=== PATIENT | male | born 1945 | race Caucasian/White ===

== ENCOUNTER 2021-10-22 06:03 | Day surgery (SDC) | payer OTHER, SELFPAY ==
[2021-10-21] MEDS: LACTATED RINGERS 1000 ML 1,000 ML 100 ML IV (12:30)
[2021-10-22] VITALS (26 sets, daily range): BP systolic 99–136; BP diastolic 47–94; PULSE 52–77; RESP 16; TEMP 35.8–36.2; O2SAT 87–99; BMI 25.4
[2021-10-22] MEDS: CEFAZOLIN 2 GM INJ IVP (06:11)
[2021-10-22] MEDS: CELECOXIB 200 MG CAPSULE PO (06:32)
[2021-10-22] MEDS: ACETAMINOPHEN 500 MG TABLET 1000 MG PO (06:32)
[2021-10-22] MEDS: OXYCODONE (CR) 10 MG TAB.ER.12H PO (06:32)
[2021-10-22] MEDS: SODIUM CHLORIDE 0.9 % (FLUSH) 10 ML SYRINGE IVF (06:51)
--- NOTE | 2021-10-22 07:08 | SUR.PREOP ---
TIME?OUT:?0708 PT/FILIPE RN/Ca GOODMAN MDA?VERIFICATION?OF?SURGICAL?SITE,?PROCEDURE,?AND?CONSENT OBTAINED?PRIOR?TO?INVASIVE?PROCEDURE.
[2021-10-22] MEDS: fentaNYL 100 MCG/2 ML inj IVP (07:10)
[2021-10-22] MEDS: MIDAZOLAM HCL 1 MG/ML inj IVP (07:10)
--- NOTE | 2021-10-22 07:12 | W.PM.NB ---
Nerve Block Nerve Block Time Seen by Provider: 07:12 Date Seen: 10/22/21 Type of block requested by surgeon for post-operative analgesia: interscalene Side: right Time out performed: Yes Verification of patient name: Yes Verification of date of : Yes Site marking: site marked Name of person performing procedure: Pradip Continuous monitoring Was continuous monitoring of O2 sat, B/P, radiation monitor, recorded every 15 minutes?: Yes Procedure Checklist: sterile prep, needles and gloves Ultrasound guided. Images saved: Yes Medications given in 5ml increments after negative aspiration: Ropivicaine %: 0.5 mL: 20 Needle gauge: 22 Decadron (mg): 10 Precedex (mcg): 25 Patient tolerated procedure well: Yes
--- NOTE | 2021-10-22 08:34 | SUR.OPER ---
PATIENT QUESTIONS ANSWERED SATISFACTORILY PREOPERATIVELY. PATIENT BROUGHT TO OR #2 PER CART FOLLOWING THE BLOCK. Patient positioned supine on OR #2 bed for the intubation.? Perioperative team wrapped the right arm in a neutral position on the pt. abdomen with the drawsheet. Left arm elevated on an IV pole in a padded strap. Final approval of positioning by surgeon. CONTINUOUS IRRIGATION OF THE LEFT SHOULDER WITH MIXTURE OF 3000 NACL AND 1mg OF EPINEPHRINE DURING PROCEDURE.
[2021-10-22] MEDS: LACTATED RINGERS 1000 ML 1,000 ML 125 ML IV (09:16)
--- NOTE | 2021-10-22 09:17 | P.ORPRC_ITS ---
Procedure Note Date of procedure: 10/22/21 Procedure: SURGEON: Venkatesh Negron MD STRUCTURAL DESIGNER: Demi Sexton PA-C PREOPERATIVE DIAGNOSIS: Left shoulder rotator cuff tear, AC joint arthrosis POSTOPERATIVE DIAGNOSIS: Left shoulder rotator cuff tear, AC joint arthrosis NAME OF OPERATION: Left shoulder arthroscopic subacromial decompression, distal clavicle excision, mini open rotator cuff repair ANESTHESIA: Supraclavicular block plus general endotracheal ESTIMATED BLOOD LOSS: 5 mL COMPLICATIONS: None SPECIMENS: None DRAINS: None PREOPERATIVE ANTIBIOTICS: Ancef 2 grams INDICATIONS: The patient is a 76-year-old male with a history of left shoulder pain secondary to the above diagnoses. Despite appropriate non operative management, they continue to have symptoms. Operative intervention was recommended. The risks, benefits and expected outcomes were discussed in detail. These incl uded but were not limited to: Infection, bleeding, injury to blood vessel or nerve, venous thromboembolism. All questions were answered to their satisfaction. PROCEDURE: A supraclavicular block was placed by Anesthesia. General anesthesia was administered. The patient was placed in the high beach chair position. The left shoulder was prepped and draped in the usual sterile fashion. The glenohumeral joint was infiltrated with 20 mL of normal saline with epinephrine. The posterior portal was established, the arthroscope was introduced. The anterior portal was established, Diagnostic arthroscopy was performed with findings as follows: The biceps is torn and retracted out of the glenohumeral joint. There is degenerative, age-appropriate tearing of the labrum circumferentially. Articular surfaces on the humeral head and glenoid are normal. There are no loose bodies. There is a full-thickness tear of the supraspinatus. The labrum was debrided with the shaver. The arthroscope was placed in the subacromial space, the lateral portal was established. The Arthrex [place] was used to dissect the acromion free. The CA ligament was recessed off the anterior acromion, the AC joint was exposed. The acromioplasty was performed with the bur in the posterior portal. The bur was then placed in the lateral portal and the lateral and anterior aspect of the acromion were resected. The undersurface of the distal clavicle was resected through the lateral portal. Finally, the bur was placed in the anterior portal and the remainder of the distal clavicle was resected for a total of 10 mm. An accessory anterolateral portal was placed. The subacromial/subdeltoid bursa was aggressively debrided. There is a full-thickness tear of the supraspinatus, infraspinatus and subscap. Arthroscopic instruments were removed. The accessory anterolateral portal was extended proximally and distally, subcutaneous dissection was taken with electrocautery to the deltoid. The deltoid was divided in line with its fibers. The static retractor was placed. The subacromial/subdeltoid bursa was debrided with the Gomez scissors. The greater and lesser tuberosities were debrided to punctate bleeding bone using the arthroscopic bur. Two Arthrex BioComposite SwiveLock anchors were placed just off the articular surface. Both limbs of the FiberWire and fiber tape were passed using the scTipTap ion. A fiber link was placed in the leading edge of the rotator cuff x2. An inverted mattress suture with FiberTape was placed in the subscap, a FiberLink was placed in the leading edge of the subscap. The subscap was secured to lesser tuberosity with a SwiveLock anchor. We tied the 2 central FiberWire sutures over the rotator cuff. We then proceeded with a lateral row of SwiveLock anchors x 2 crossing the FiberTape and incorporating the FiberWire and fiber link into each lateral row anchor. This provides an excellent repair of the rotator cuff. There is no tension on the repair with the shoulder at 0? abduction. The wound was irrigated with normal saline off the pump. The deltoid was repaired with an 0 Vicryl in an interrupted [id number] fashion. Subcutaneous tissues were closed with a 3-0 Vicryl. Skin was closed with a 3-0 Monocryl in a subcuticular fashion. A dry dressing, polar care and sling were applied. Sponge and needle counts were correct x2. The patient tolerated the procedure well. There were no apparent complications. They were carefully transferred to the hospital bed and taken to the postanesthesia care unit in satisfactory condition. PLAN: The patient will be discharged to home. No active range of motion of the shoulder will be allowed for 6 weeks postoperatively. They can work on active range of motion of the elbow, wrist and fingers. They will follow up in the office next week for a wound check and an AP and transscapular Y-view of the shoulder prior to being seen, in preparation for beginning therapy.
--- NOTE | 2021-10-22 09:32 | W.ANESCHARGE ---
Anesthesia Charges Start Date/Time Anesthesia Start Date: 10/22/21 Anesthesia Start Time: 07:29 Stop Date/Time Anesthesia Stop Date: 10/22/21 Anesthesia Stop Time: 09:34 Summary Emergency: No Extremes of Age: Over 68-CPT 80234
--- NOTE | 2021-10-22 09:51 | W.ANESCHARGE ---
Anesthesia Charges Start Date/Time Anesthesia Start Date: 10/22/21 Anesthesia Start Time: 07:29 Stop Date/Time Anesthesia Stop Date: 10/22/21 Anesthesia Stop Time: 09:34 Summary Emergency: No Extremes of Age: Over 68-CPT 80374
== END 2021-10-22 11:53 | disposition home or self-care (01) ==
PROVIDERS: Visit Provider Orthopaedic Surgery
PROC: (CPT 23412; principal; 2021-10-22 07:30)
DX: M75.102 Unspecified rotator cuff tear or rupture of left shoulder, not specified as traumatic (principal); M19.012 Primary osteoarthritis, left shoulder
CPT/HCPCS: 29826; 29824; 23412; 01630; 64415; 76942; 99100; A9270; C1713; J0330; J0690; J1100; J2250; J2370; J2405; J2704; J2710; J3010; J7120; L3670

== ENCOUNTER 2022-07-12 12:45 | Outpatient (CLI) | payer OTHER, SELFPAY ==
--- NOTE | 2022-07-12 13:00 | CRLHL7_ITS ---
For Patients: As a result of the 21st Century Cures Act, medical imaging exams and procedure reports are released immediately into your electronic medical record. You may view this report before your referring provider. If you have questions, please contact your health care provider. Indication: Right L5-S1 radiculopathy Technique: Multiplanar, multisequence, MRI of the lumbar spine, obtained without contrast. Comparison: Lumbar spine 30835 spine 03/29/2014 Findings: Lumbar dextrocurvature, with preserved lordosis. Degenerative grade 1 retrolisthesis at L2-3. Multilevel degenerative endplate marrow signal changes, including predominantly Modic type 1 at the L1-2 level, mixed Modic type 1 and Modic type 2 changes at L2-3 and L4-5, and predominantly Modic type 2 at the remaining levels. No evidence of acute osseous abnormality or suspicious marrow lesion. The conus medullaris terminates at approximately T12-L1. No suspicious findings in the paraspinal soft tissues. Bilateral renal cysts. Unremarkable included SI joints. T11-12, T12-L1: Mild diffuse disc bulge, facet arthropathy. No significant neural foraminal or spinal canal stenosis. L1-L2: Diffuse disc bulge, mild facet arthropathy. No significant neural foraminal stenosis. Left lateral recess narrowing without significant central spinal canal stenosis. L2-L3: Retrolisthesis, disc-endplate complex, facet arthropathy, ligamentum flavum laxity. Moderate bilateral neural foraminal stenosis. Moderate-severe spinal canal stenosis. L3-L4: Diffuse disc bulge, facet arthropathy, ligamentum flavum laxity. Mild left, moderate right neural foraminal stenosis. Severe spinal canal stenosis. L4-L5: Right hemilaminectomy, diffuse disc bulge, facet arthropathy, left ligamentum flavum laxity. Approximately 6 x 8 x 8 mm synovial cyst along the right dorsolateral thecal sac (series 5, image 8; series 2, image 10). Right lateral recess stenosis and moderate-severe right neural foraminal stenosis, with possible impingement of the exiting right L4 and descending right L5 nerve roots. No left neural foraminal stenosis. Moderate central spinal canal stenosis. L5-S1: Disc bulge, facet arthropathy. Mild right neural foraminal narrowing. No left neuroforaminal stenosis. Mild spinal canal narrowing. Impression: 1. Lumbar spondylosis, progressed relative to 2013. 2. Dextrocurvature, degenerative grade 1 retrolisthesis at L2-3, and multilevel degenerative marrow signal changes as detailed. 3. At L2-3, moderate-severe spinal canal stenosis, and moderate bilateral neural foraminal stenosis. 4. At L3-4, severe spinal canal stenosis, and moderate right neural foraminal stenosis. 5. At L4-5, approximately 8 mm synovial cyst along the right dorsolateral thecal sac, moderate-severe right neural foraminal stenosis and right lateral recess stenosis with possible impingement of the exiting right L4 and descending right L5 nerve roots. Moderate spinal canal stenosis. 6. At L5-S1, mild right neural foraminal narrowing. Dictated by Fariba Lewis MD @ 07/13/2022 10:10:23 AM (Electronically Signed)
== END 2022-07-12 12:46 | disposition home or self-care (01) ==
PROVIDERS: Visit Provider Family Medicine
DX: M54.16 Radiculopathy, lumbar region (principal); M47.816 Spondylosis without myelopathy or radiculopathy, lumbar region; M48.061 Spinal stenosis, lumbar region without neurogenic claudication; M51.27 Other intervertebral disc displacement, lumbosacral region; M51.26 Other intervertebral disc displacement, lumbar region; M71.38 Other bursal cyst, other site
CPT/HCPCS: 72148

== ENCOUNTER 2023-05-17 07:17 | Outpatient (CLI) | payer MEDICARE, BC, SELFPAY | END 2023-05-17 07:18 | disposition home or self-care (01) | PROVIDERS: PCP Family Medicine; Visit Provider Family Medicine | DX: M54.16 Radiculopathy, lumbar region (principal); M51.36 Other intervertebral disc degeneration, lumbar region | CPT/HCPCS: 64483; J1100; Q9966 ==

== ENCOUNTER 2025-01-08 07:05 | Outpatient (CLI) | payer MEDICARE, BC, SELFPAY ==
--- NOTE | 2025-01-08 07:15 | CRLHL7_ITS ---
For Patients: As a result of the Century Cures Act, medical imaging exams and procedure reports are released immediately into your electronic medical record. You may view this report before your referring provider. If you have questions, please contact your health care provider. INDICATION: Paresthesias. TECHNIQUE: Multisequence multiplanar MRI of the lumbar spine without the use of intravenous contrast. COMPARISON: MRI lumbar spine dated 07/12/2022. FINDINGS: Similar upper lumbar dextrocurvature. Posterior aspects of the vertebral bodies are aligned. Slight increase in vertebral and endplate edema from L1-L4. The conus medullaris terminates normally at the L1 level. Circumscribed bilateral renal parenchymal hyperintensities appears similar to prior and are most typical for cysts. T12-L1: Symmetric disc bulge. No significant spinal canal or neural foraminal stenosis. L1-L2: Symmetric disc bulge and posterior endplate osteophytic ridging. Moderate bilateral facet joint arthrosis. Mild spinal canal stenosis with narrowing of the left lateral recess. Mild left and no significant right neural foraminal narrowing. L2-L3: Symmetric disc bulge and posterior endplate osteophytic ridging. Moderate facet joint arthrosis. Similar moderate-severe spinal canal stenosis and moderate bilateral neural foraminal narrowing. L3-L4: Symmetric disc bulge. Moderate facet joint arthrosis. Similar severe spinal canal stenosis, moderate-severe right neural foraminal narrowing, and mild left neural foraminal narrowing. L4-L5: Redemonstrated remote right hemilaminectomy. Dorsal synovial cysts noted on prior exam is no longer seen. Symmetric disc bulge. Advanced right facet joint arthrosis. Similar moderate spinal canal stenosis with severe narrowing of the right lateral recess. Similar moderate-severe right neural foraminal narrowing. No significant left neural foraminal narrowing. L5-S1: Symmetric disc bulge with similar 3 mm superimposed central disc protrusion (series 2, image 12).. Similar mild spinal canal stenosis. No significant neural foraminal narrowing. IMPRESSION: 1. Slight increased vertebral endplate edema from L1-L4, favored to be degenerative in etiology. 2. At L1-L2, similar mild spinal canal stenosis and left neural foraminal narrowing. 3. At L2-L3, similar moderate-severe spinal canal stenosis and moderate bilateral neural foraminal narrowing. 4. At L3-L4, similar severe spinal canal stenosis and moderate-severe right neural foraminal narrowing. 5. At L4-L5, similar moderate spinal canal stenosis and moderate-severe right neural foraminal narrowing. Previously described synovial cyst is no longer seen. 6. At L5-S1, similar small central disc protrusion and mild spinal canal stenosis. Dictated by David Benson MD @ 01/08/2025 12:58:55 PM (Electronically Signed)
== END 2025-01-08 07:06 | disposition home or self-care (01) ==
PROVIDERS: PCP Family Medicine; Visit Provider Family Medicine
DX: R20.0 Anesthesia of skin (principal); M48.061 Spinal stenosis, lumbar region without neurogenic claudication; M48.07 Spinal stenosis, lumbosacral region
CPT/HCPCS: 72148

== ENCOUNTER 2025-02-01 13:25 | Outpatient (CLI) | payer MEDICARE, BC, SELFPAY | END 2025-02-01 13:26 | disposition home or self-care (01) | LOC: INJ CL 13:25 | PROVIDERS: PCP Family Medicine; Visit Provider Family Medicine | DX: M54.16 Radiculopathy, lumbar region (principal); M51.369 Other intervertebral disc degeneration, lumbar region without mention of lumbar back pain or lower extremity pain; M48.062 Spinal stenosis, lumbar region with neurogenic claudication | CPT/HCPCS: 64483; J1100; Q9966 ==